=== PATIENT | male | born 1945 | race Caucasian/White ===

== ENCOUNTER 2023-09-29 10:32 | Day surgery (SDC) | payer MEDICARE, OTHER ==
[2023-09-29] VITALS (9 sets, daily range): BP systolic 112–139; BP diastolic 51–70; PULSE 46–65; RESP 12–18; TEMP 98; O2SAT 92–97
[~2023-09-29] VITALS: Ht 180.3 cm; Wt 97.2 kg
[2023-09-29] MEDS: normal saline 1,000 ML IV SCH (10:40)
[2023-09-29] MEDS ORDERED: AMLO5TAB16 PO (11:07)
[2023-09-29] MEDS ORDERED: LOSA100T58 PO (11:07)
[2023-09-29] MEDS ORDERED: ATEN25TA PO (11:07)
[2023-09-29] MEDS ORDERED: ATOR40TA72 PO (11:07)
[2023-09-29] MEDS ORDERED: HYDR25TA4 PO (11:07)
[2023-09-29 11:42] LABS: BASOPHILS # (AUTO) 0.1 X10'3 (0-0.2); BASOPHILS % (AUTO) 0.5 % (0-1); EOSINOPHILS # (AUTO) 0.1 X10'3 (0-0.9); EOSINOPHILS % (AUTO) 1.3 % (0-6); HEMATOCRIT 37.6 % (42.0-52.0); HEMOGLOBIN 13.3 g/dl (14.0-17.9); LYMPHOCYTES # (AUTO) 1.4 X10'3 (1.1-4.8); LYMPHOCYTES % (AUTO) 13.6 % (21-51); MEAN CORPUSCULAR HEMOGLOBIN 31.9 PG (27.0-31.0); MEAN CORPUSCULAR HGB CONC 35.4 g/dL (33.0-36.5); MEAN PLATELET VOLUME 7.9 FL (7.4-10.4); MONOCYTES # (AUTO) 1.1 X10'3 (0-0.9); MONOCYTES % (AUTO) 10.7 % (2-12); NEUTROPHILS # (AUTO) 7.7 X10'3 (1.8-7.7); NEUTROPHILS % (AUTO) 73.9 % (42-75); PLATELET COUNT 319 X10'3 (140-440); RED BLOOD COUNT 4.18 X10'6 (4.70-6.10); RED CELL DISTRIBUTION WIDTH 13.9 % (11.5-14.5); WHITE BLOOD COUNT 10.4 X10'3 (4.5-11.0)
[2023-09-29 11:52] LABS: PROTHROMBIN TIME 10.5 SECONDS (9.0-12.0)
[2023-09-29 11:55] LABS: ALBUMIN 3.7 G/DL (3.4-5.0); ANION GAP 9 (8-16); BLOOD UREA NITROGEN 23 MG/DL (7-18); BUN/CREATININE RATIO 20.5 (10.0-20.0); CALCIUM 9.2 MG/DL (8.5-10.1); CHLORIDE 104 MMOL/L (99-107); CHOL/HDL RATIO 2.5 (0.00-4.99); CHOLESTEROL 153 MG/DL (0-200); CREATININE 1.12 MG/DL (0.60-1.10); GLUCOSE 99 MG/DL (70-104); HDL CHOLESTEROL 61 MG/DL (35-60); LDL CHOLESTEROL 69 MG/DL (50-100); POTASSIUM 3.6 MMOL/L (3.5-5.1); SODIUM 136 MMOL/L (135-145); TOTAL CARBON DIOXIDE 22.6 MMOL/L (24-32); TRIGLYCERIDES 113 MG/DL (20-135); eCRCL 58 ML/MIN; eGFR 63 ML/MIN
[2023-09-29] MEDS ORDERED: LIDOcaine 1% (10mg/ml) 2ml vial ONE (12:03)
[2023-09-29] MEDS ORDERED: midazolam 1 mg/ML 2ml injection ONE ×2 (12:03→14:18)
[2023-09-29] MEDS ORDERED: fentaNYL/PF 50MCG/1 ML 2ML syringe ONE (12:03)
[2023-09-29] MEDS ORDERED: heparin 1,000unit/ml 10ml vial 10 ML ONE (12:03)
[2023-09-29] MEDS ORDERED: verapamil 2.5 mg/ml inj IV ONE (12:03)
[2023-09-29] MEDS ORDERED: iohexol 350MG/ML 100ml bottle IV ONE ×2 (12:03→14:07)
[2023-09-29] MEDS: LORazepam 0.5 MG tablet PO PRN (12:10)
[2023-09-29] MEDS ORDERED: nitroGLYCERIN 500mcg/5mL D5W 5 ML IV ONE (12:10)
[2023-09-29] MEDS: diphenhydrAMINE 25mg capsule PO PRN (12:10)
[2023-09-29] MEDS ORDERED: ASPI-611 PO (16:57)
[2023-09-30 06:15] LABS: ISTAT HGB MIX 11.6 g/dl (14.0-17.9); ISTAT HGB MIX 11.9 g/dl (14.0-17.9); ISTAT Hct MIX 34 %PCV (42-52); ISTAT Hct MIX 35 %PCV (42-52); ISTAT O2 SATURATION MIX VENOUS 70 % (60-80); ISTAT O2 SATURATION MIX VENOUS 92 % (60-80); ISTAT SOURCE BLNK
== END 2023-09-29 17:30 | disposition home or self-care (01) ==
LOC: SSTAY O 10:32
PROVIDERS: ATTEND Student in an Organized Health Care Education/Training Program
DX: I35.0 Nonrheumatic aortic (valve) stenosis (principal); I25.10 Atherosclerotic heart disease of native coronary artery without angina pectoris; I10 Essential (primary) hypertension; E78.5 Hyperlipidemia, unspecified; E11.9 Type 2 diabetes mellitus without complications; Z85.828 Personal history of other malignant neoplasm of skin; Z91.030 Bee allergy status; Z88.8 Allergy status to other drugs, medicaments and biological substances
CPT/HCPCS: 36415; 80048; 80061; 85025; 85610; 92978; 93005; 93456; 99152; 99153; A6258; A6402; C1751; C1753; C1769; C1894; J1644; J2001; J2250; J3010; J3490; J7030; Q0163; Q9967; Z7610; 82803; 85014